=== PATIENT | male | born 1985 | race Hispanic/Latino ===

== ENCOUNTER 2017-10-04 08:23 | Emergency (ER) | payer SELFPAY ==
[2017-10-04] MEDS ORDERED: Ibuprofen 800 MG TAB ONE (09:32)
[2017-10-04] MEDS ORDERED: Acetaminophen 500 MG TAB ONE (09:32)
== END 2017-10-04 09:39 | disposition home or self-care (01) ==
LOC: ERS 08:23
DX: J11.1 Influenza due to unidentified influenza virus with other respiratory manifestations (principal); I10 Essential (primary) hypertension; J45.909 Unspecified asthma, uncomplicated; F17.210 Nicotine dependence, cigarettes, uncomplicated
CPT/HCPCS: 99283

== ENCOUNTER 2017-11-23 18:02 | Emergency (ER) | payer SELFPAY | END 2017-11-23 18:26 | disposition home or self-care (01) | LOC: ERS 18:02 | DX: K05.00 Acute gingivitis, plaque induced (principal); K02.9 Dental caries, unspecified; I10 Essential (primary) hypertension; F17.210 Nicotine dependence, cigarettes, uncomplicated; J45.909 Unspecified asthma, uncomplicated | CPT/HCPCS: 99406 ==

== ENCOUNTER 2019-06-14 20:59 | Emergency (ER) | payer OTHER, SELFPAY ==
[2019-06-14] MEDS ORDERED: Ondansetron ODT 4 MG TAB ONE (21:51)
== END 2019-06-14 22:25 | disposition home or self-care (01) ==
LOC: ERS 20:59
DX: B34.9 Viral infection, unspecified (principal); J45.909 Unspecified asthma, uncomplicated; F17.210 Nicotine dependence, cigarettes, uncomplicated
CPT/HCPCS: 93005; Q0162

== ENCOUNTER 2019-06-18 14:41 | Emergency (ER) | payer OTHER | END 2019-06-18 16:07 | disposition home or self-care (01) | LOC: ERS 14:41 | DX: J06.9 Acute upper respiratory infection, unspecified (principal); J45.909 Unspecified asthma, uncomplicated; F41.9 Anxiety disorder, unspecified; F17.210 Nicotine dependence, cigarettes, uncomplicated | CPT/HCPCS: 99283 ==

== ENCOUNTER 2019-11-06 22:09 | Emergency (ER) | payer OTHER, SELFPAY ==
[~2019-11-06 22:09] MED LIST: Iopamidol-370 76% 500 ML 1 ML ONE
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
[2019-11-06 22:46] LABS: #Lymphocytes 1.3 thou/uL (1.20-3.40); #Monocytes 0.2 thou/uL (0.11-0.59); #Neutrophils 10.4 thou/uL (1.40-6.50); %Basophils 0.3 % (0.0-1.0); %Eosinophils 0.1 % (0.0-10.0); %Lymphocytes 10.7 % (21.0-51.0); %Monocytes 1.7 % (0.0-10.0); %Neutrophils 87.2 % (42.0-75.0); Hemoglobin 19.8 g/dL (14.0-18.0); Mean Corpuscular HGB CONC 33.5 g/dL (32.0-36.0); Mean Corpuscular Hemoglobin 32.1 pg (27.0-31.0); Mean Corpuscular Volume 95.6 fL (78.0-98.0); Mean Platelet Volume 7.9 fL (7.4-10.4); Platelet Count 205 thou/uL (130-400); RBC Distribution Width 11.5 % (11.5-14.5); Red Blood Cell (RBC) Count 6.17 mill/uL (4.70-6.10); White Blood Cell (WBC) Count 11.9 thou/uL (4.8-10.8)
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
[2019-11-06 22:57] LABS: PTT 23.5 SEC (22.9-36.1); Prothrombin Time 13.7 SEC (12.0-14.7)
[2019-11-06] MEDS ORDERED: Adacel (T-DAP) 0.5 ML SYRINGE ONE (22:59)
[2019-11-06] MEDS ORDERED: Ondansetron PF 4 MG/2 ML Vial ONE (22:59)
[2019-11-06] MEDS ORDERED: Morphine 10 MG/ML VIAL ONE (22:59)
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
[2019-11-06 23:10] LABS: ALT (SGPT) 31 U/L (8-55); AST (SGOT) 32 U/L (5-34); Albumin 5.3 g/dL (3.5-5.0); Alkaline Phosphatase 102 U/L (40-110); Anion Gap 20 mmol/L (10-20); BUN (Urea Nitrogen) 11 mg/dL (8.9-20.6); Bilirubin, Total 0.6 mg/dL (0.2-1.2); Calc. Creatinine Clearance 0 mL/min (70-130); Calcium 10.4 mg/dL (7.8-10.44); Carbon Dioxide 22 mmol/L (22-29); Chloride 102 mmol/L (98-107); Estimated GFR-MDRD 56; Globulin 3.3 g/dL (2.4-3.5); Glucose 164 mg/dL (70-105); Lipase 22 U/L (8-78); Potassium 4.3 mmol/L (3.5-5.1); Protein, Total 8.6 g/dL (6.0-8.3); Sodium 140 mmol/L (136-145)
== END 2019-11-07 00:42 ==
LOC: ERS 22:09
DX: S62.232A Other displaced fracture of base of first metacarpal bone, left hand, initial encounter for closed fracture (principal); V89.2XXA Person injured in unspecified motor-vehicle accident, traffic, initial encounter
CPT/HCPCS: 70450; 71045; 71260; 72125; 72170; 74177; 80053; 83690; 84484; 85025; 85610; 85730; 90471; 90715; 93005; 96374; 96375; G0390; J2270; J2405; Q9967